=== PATIENT | female | born 1975 ===

== ENCOUNTER 2016-11-09 16:24 | Inpatient (IN) | payer BC, MEDICAID ==
[~2016-11-09] VITALS: Ht 157.5 cm; Wt 77.1 kg
--- NOTE | ~2016-11-09 | HP ---
ADMIT: 11/09/2016 RM/LOC: 223 [facility] MR#: [id number] [address] [facility] [address] [place] [id number] SCOTT TOBIAS [address] [place] [address] Pre-OP History and Physical SEX: F AGE: 41 : 1975 DATE OF SERVICE: PRINCIPAL DIAGNOSES: 1. Intrauterine at 31 and 2/7th weeks' estimated gestational age. 2. Intrauterine growth restriction. 3. Severe preeclampsia. HISTORY OF PRESENT ILLNESS: The patient is a 41-year-old, female, 3, para one, at 31 and 2/7h weeks estimated gestational age by good dating criteria. She presented to the clinic with complaints of right upper quadrant pain and elevated blood pressures, had been admitted to the hospital for 48 hours of steroids for lung maturity and membrane stabilization. Her had been complicated by an abnormal quad screen with normal MFM evaluation including amniocentesis showing a normal karyotype and FISH studies. has been chronically complicated with intrauterine growth restriction with weight approximately the 1st percentile. PREVIOUS MEDICAL HISTORY: Asthma. MEDICATIONS: Albuterol inhaler and Symbicort two puffs daily. ALLERGIES: SHE HAS NO KNOWN MEDICAL ALLERGIES. PHYSICAL EXAMINATION: GENERAL: The patient is a well-developed, well- nourished female, lying in bed. States, she is not feeling well. She has typical complaints associated with being on magnesium sulfate for seizure prophylaxis including overall fatigue, headache, chest tightness, and blurry vision. ASSESSMENT: Severe preeclampsia. The patient's blood pressures have been in the icrxxqvt-[id number]-kazbvv range. She also has decreased urine output. Overall, she has been in the 30-40 mL/hour range but decreased urine output has required modification of her magnesium dosing. We discussed management options with the patient including attempt at vaginal delivery versus primary low transverse section. After discussing with the patient, the patient states that in her current status, she feels that she has zero energy to go through labor. We did discuss the fact that with her severe preeclampsia and severe intrauterine growth restriction, the ability of the fetus to tolerate labor is questionable. We did discuss the risks involved ADMIT: 11/09/2016 RM/LOC: 223 [facility] MR#: [id number] [address] [address] ZABALA TALIA, SCOTT [address] [place] [address] Pre-OP History and Physical SEX: F AGE: 41 : 1975 with primary low transverse section including risks of infection, risk of bleeding with possible need for blood transfusion, and the attendant infectious risks inherent in blood transfusion. We also discussed risk of damage to other organs including, but not limited to, bowel, bladder, major blood vessels, and ureters with possible need for additional surgery and repair should such damage occur. The patient voiced understanding of the risks, benefits, and alternatives to surgery. The options of attempting a spontaneous vaginal delivery. Given the fact that she has an unfavorable cervix for induction which would require a ripening before induction could be even started, her severe preeclampsia, and her feeling that overall she would not tolerate labor well, the patient does opt for a primary low transverse section. Cheikh Tomas MD/ logan JOB #: [id number] CC: Che Wilson MD, Attending Physician Che Wilson MD, Family Physician
--- NOTE | 2016-11-16 09:26 | HP ---
ADMIT: 11/09/2016 RM/LOC: 223 [facility] MR#: [id number] 2620 [facility] [address] [place] [phone] SCOTT TOBIAS [address] [place] [address] History and Physical SEX: F AGE: 41 : 1975 DATE OF SERVICE: HISTORY OF PRESENT ILLNESS: This is a 41-year-old G3, P1-0-1-1 with an intrauterine at 31-0/7 weeks by LMP consistent with an 8-week ultrasound. She presents with complaints of right upper quadrant pain and elevated blood pressures taken at home today. The patient indicates that she has also mild right upper quadrant pain and then just generally has not been feeling well today. She was seen yesterday in clinic and had normal twice weekly testing and had normal blood pressures and normal NST at that time. She states she has mild headache. No visual changes. No chest pain or shortness of breath. No nausea, vomiting, diarrhea, or constipation. She notes good movement. No loss of fluid. No vaginal bleeding or contractions. Her is complicated by history of advanced maternal age. She did have an abnormal quad screen. An evaluation with MFM and amniocentesis that showed normal karyotype and FISH studies. She also has known IUGR around the 1st percentile and her last estimated weight was done by ultrasound on November 05, 2016 was 1143 g. Weekly Dopplers have been performed since IUGR diagnosis around 27 weeks and all have been normal. She has also had interval growth at every single ultrasound, but persistently around 1st percentile. is also complicated by history of moderate persistent asthma and the patient was treated within the last 2 weeks for exacerbation of this; however, today she notes that her symptoms are well controlled. PAST MEDICAL HISTORY: Asthma. PAST SURGICAL HISTORY: She has had a shattered right wrist with metal plate placement in around 1999. She has had a history of removal of an ovarian cyst on the right side. PAST OBSTETRICS/GYNECOLOGIC HISTORY: She is G3, P1-0-1-1. She has a history of 1 at term in 2005 and she had 1 spontaneous miscarriage in 2010, treated with D and C. MEDICATIONS: She takes: 1. vitamin daily. 2. She is on Symbicort 160/4.5 mcg/ACT two puffs two times daily. 3. Albuterol inhaler 90 mcg, two puffs q.4 hours p.r.n. wheezing or cough. ALLERGIES: NO KNOWN DRUG ALLERGIES. REVIEW OF SYSTEMS: Please see HPI for details. PHYSICAL EXAMINATION: VITAL SIGNS: Blood pressure is 159/89 (right 149- 186/89-112), pulse is 86, temperature is 99.8. The patient is 99% on room air. heart tones baseline is 145, moderate variability, positive accelerations, no decelerations noted. [place] shows no contractions. GENERAL: The patient is tearful, but otherwise resting comfortably in bed. HEART: Regular rate and rhythm. No murmurs, rubs, or gallops. ADMIT: 11/09/2016 RM/LOC: 223 [facility] MR#: [id number] [address] [place] [id number] SCOTT TOBIAS [address] [place] [address] History and Physical SEX: F AGE: 41 : 1975 LUNGS: Clear to auscultation bilaterally. ABDOMEN: Gravid. She does have mild right upper quadrant tenderness on exam, but no rebound or guarding. EXTREMITIES: She has minimal like 0 to trace edema present. DTRs are 2+. No clonus noted. Her cervix is 1/thick/-3. LABORATORY STUDY: Shows a white count of 13.6, hemoglobin of 13.3, platelets 126, hematocrit 38.4. Sodium is 139, potassium 4.3. Chloride is 108, CO2 is 24, BUN is 10, creatinine 0.8. Glucose is 83, AST 59, ALT is 65. Her protein- to-creatinine ratio on her urine was 9.7. Ultrasound showed fetus in cephalic position. SD ratios were 3.22 to 4.7. There was no evidence of absent or reversal of end-diastolic flow on umbilical artery studies. ASSESSMENT AND PLAN: 1. This is a 41-year-old G3, P1-0-1-1 with an intrauterine at 31- 0/7 weeks, likely preeclampsia based on elevated blood pressures on presentation and significantly abnormal urine protein to creatinine ratio. We will admit to Labor and Delivery. Initiate magnesium sulfate for seizure prophylaxis as well as neural protection. Celestone course for lung maturity was also initiated. Veterans' Coordinator was notified of admission. The patient has previously been counseled regarding risks of prematurity of the , she understands that she will be hospitalized until delivery of the baby. We will continue to monitor her labs q.6 hours or more frequently if needed. I did review with the patient that if platelets do drop below 100, she will not be a candidate for regional anesthetic with either epidural if she has a vaginal delivery or with spinal with is indicated. 2. History of prior vaginal delivery, group B Streptococcus was collected and sent for lab for analysis. 3. Asthma. We will keep the patient on continuous pulse ox and monitor closely. We will continue her home medications. 4. Risks, benefits, and alternatives of spontaneous vaginal delivery were discussed with the patient. She understands risks to include, but are not limited to, bleeding, infection, injury to surrounding tissue, possible need for delivery. She also understands there may be an indication to proceed with a section. She understands these risks are including, but not limited to, bleeding, infection, injury to surrounding structures within the abdomen, anesthesia complications, nerve injury, potential need for additional procedures, potential need ADMIT: 11/09/2016 RM/LOC: 223 [facility] MR#: [id number] [address] [address] SCOTT TOBIAS [address] [place] [address] History and Physical SEX: F AGE: 41 : 1975 for blood transfusion, and venous thromboembolism. She understands the risk that she may need a blood transfusion. If she does need a blood transfusion, she understands the risks of blood transfusion to include risk of acquired infection like hepatitis C or HIV, hepatitis B. She understands the risk of infection such as HIV or hepatitis C is approximately 1 in 500,000 to 1 in a million units of blood. She also understands there could potentially be an infection that is not currently being tested for that could be acquired. She understands the risk of transfusion-related reaction that could potentially be life threatening and the development of transfusion-related antibodies that could complicate future pregnancies or future transfusions. The patient voiced understanding and will sign appropriate consent as needed. Che Wilson MD/ logan JOB #: [id number] CC: Che Wilson MD, Attending Physician Che Wilson MD, Family Physician
[2016-11-16] MEDS ORDERED: PRENATAL VIT1 TAB PO (18:29)
[2016-11-16] MEDS ORDERED: VITAMIN C100 MG PO (18:29)
[2016-11-16] MEDS ORDERED: PROCARDIA XL DP30 MG PO (18:30)
[2016-11-16] MEDS ORDERED: NIPPLECREAM TP (18:30)
[2016-11-16] MEDS ORDERED: COLACE-DPS100 MG PO (18:30)
[2016-11-16] MEDS ORDERED: PERCOCET 5 DPS1 TAB PO (18:30)
[2016-11-16] MEDS ORDERED: MOTRIN-DPS800 MG PO (18:30)
--- NOTE | 2016-12-24 08:28 | OR ---
ADMIT: 11/09/2016 RM/LOC: 223 [facility] MR#: [id number] [address] [address] SCOTT TOBIAS [address] [place] [address] Operative/Delivery Room Report SEX: F AGE: 41 : 1975 SURGERY DATE: 11/11/2016 SURGEON: Cheikh Tomas MD PRINCIPAL DIAGNOSES: 1. Intrauterine at 31 and 2/7th weeks' estimated gestational age. 2. Intrauterine growth restriction. 3. Severe preeclampsia. POSTOPERATIVE DIAGNOSES: 1. Intrauterine at 31 and 2/7th weeks' estimated gestational age. 2. Intrauterine growth restriction. 3. Severe preeclampsia. PROCEDURE: Primary low transverse section. WARDROBE MANAGER: Karely Gonzalez MD, Resident. INDICATION: The patient is a 41-year-old female, 3, para 1-0- 1-1, who presented at 31 weeks' estimated gestational age with severe preeclampsia and severe intrauterine growth restriction. The patient was monitored, begun on magnesium for seizure prophylaxis and neuroprotection; given steroids for lung maturity. After 48 hours of steroids were on board, the patient opted for primary low transverse section. ANESTHESIA: Spinal. ESTIMATED BLOOD LOSS: 500 mL. COMPLICATIONS: None. FINDINGS: A viable female infant, 2 pounds and 4.5 ounces with Apgars of 8 at one and 9 at five minutes. PROCEDURE IN DETAIL: The patient was taken to the operating room. She was prepped and draped in the usual fashion in dorsal supine position with a leftward tilt. A transverse skin incision was made with a scalpel and carried through sharply to the underlying layer of fascia. Fascia was nicked in the midline, and the fascial incision was extended laterally with Colón scissors. The fascia was dissected off the underlying rectus muscles. The rectus muscles were in the midline. The parietal peritoneum was identified, tented up with Jeannine clamps, and entered sharply with Colón scissors. This incision was then extended superiorly and inferiorly with good visualization of the bladder. Bladder flap was then created with a combination of sharp and blunt dissection. The uterus was nicked in the midline, and the uterine incision was then extended laterally with blunt digital dissection. Infant's head was then delivered atraumatically. Nuchal cord x1 was noted and was reduced without ADMIT: 11/09/2016 RM/LOC: 223 [facility] MR#: [id number] [address] [address] SCOTT TOBIAS [address] [place] [address] Operative/Delivery Room Report SEX: F AGE: 41 : 1975 difficulty. The remainder of the was delivered. Cord was clamped x2, cut, and the was handed off to the waiting engineer internship. The placenta was then delivered intact with normal appearance. The uterus was exteriorized and cleared of all clots and debris. The endometrial cavity was swept with a moist laparotomy sponge to remove any remaining products of conception. She was noted to have an approximately 3 cm, nodular fibroid present at the uterine fundus which did extend through and into the endometrial cavity. The uterine incision was then reapproximated with a running locked length of 0 Vicryl. Two aukarv-gn-bodzq stitches of 0 Vicryl were then used to obtain good hemostasis. The patient's abdomen was then suctioned. The uterus was returned to the patient's abdomen. The paracolic gutters were cleared of all clots and debris. Uterine incision was again inspected and noted to be hemostatic. Subfascial compartments were then inspected and noted to be hemostatic, and the fascia was then reapproximated with a running length of 0 Vicryl. Subcutaneous tissue was then inspected and noted to be hemostatic and was reapproximated with several interrupted sutures of 2-0 plain gut, and the skin was then closed with Insorb subcuticular breezy. The patient tolerated the procedure well and was taken recovery room in stable condition. All sponge, instrument, and needle counts were correct. Cheikh Tomas MD/ logan JOB #: [id number] CC: Che Wilson MD, Attending Physician Che Wilson MD, Family Physician
--- NOTE | 2017-01-03 13:23 | DS ---
ADMIT: 11/09/2016 RM/LOC: 223 [facility] MR#: [id number] [address] [facility] [address] [place], [place] [address] SCOTT TOBIAS [address] [facility] [address] [place] [address] Discharge Summary SEX: F AGE: 41 : 1975 ADMISSION DATE: 11/09/2016 DISCHARGE DATE: 11/15/2016 DIAGNOSIS: 1. intrauterine at 31 weeks and 2/7th days. 2. Severe preeclampsia. 3. Intrauterine growth restriction. PROCEDURE: Primary low transverse section. HOSPITAL COURSE: This is a 41-year-old, G3, P1-0-1-1, who presented to Labor and Delivery at 31 weeks and 0/7th days by LMP consistent with eight week ultrasound with severe range blood pressures. She was admitted and received steroids. She had known intrauterine growth restriction at that time. Once the patient was 48 hours from steroids it was decided to proceed with delivery. Given severe IUGR with concern for intolerance of labor was present, risks benefits and alternatives of the route of delivery were discussed and the patient desired a primary low transverse section. The patient underwent the above procedure without complication. The was admitted to the NICU. On postoperative day #1, the patient was advanced. The patient needed the blood pressure medications of 90 of Procardia while she was inpatient for severe range blood pressures . By postoperative day #4, the patient was meeting all goals, blood pressures were under better control with Procardia of 90 mg XL daily. Discharge instructions were reviewed with the patient. DISCHARGE MEDICATIONS: 1. Procardia 90 mg XL one tab daily. 2. Percocet 5/325, 1-2 tablets p.o. q.4 hours p.r.n. pain. 3. Ibuprofen 800 mg, one tab every 8 hours p.r.n. pain. Che iWlson MD/ matty JOB #: [id number] CC: Che Wilson MD, Attending Physician Che Wilson MD, Family Physician
== END 2016-11-15 11:55 | disposition home or self-care (01) | DRG 765 ==
LOC: 2LDRP 16:24 → BC 16:24 → 2LDRP 17:38
PROC: 10D00Z1 Extraction of Products of Conception, Low, Open Approach (ICD-10-PCS; principal; 2016-11-11)
DX: O14.14 Severe pre-eclampsia complicating childbirth (principal); O36.5930 Maternal care for other known or suspected poor fetal growth, third trimester, not applicable or unspecified; O69.81X0 Labor and delivery complicated by cord around neck, without compression, not applicable or unspecified; O99.52 Diseases of the respiratory system complicating childbirth; J45.40 Moderate persistent asthma, uncomplicated; O34.13 Maternal care for benign tumor of corpus uteri, third trimester; D25.9 Leiomyoma of uterus, unspecified; Z3A.31 31 weeks gestation of pregnancy; Z37.0 Single live birth